=== PATIENT | male | born 1970 ===

== ENCOUNTER → 2020-09-07 | Outpatient (CLI) | payer OTHER | END | disposition home or self-care (01) | LOC: RAD 12:03 | PROVIDERS: ATTEND Internal Medicine Cardiovascular Disease | DX: M79.642 Pain in left hand (principal) ==

== ENCOUNTER 2021-05-04 05:00 | Day surgery (SDC) | payer OTHER ==
[~2021-05-04 05:00] MED LIST: ADULT LOW DOSE81 M1 PO; CLONAZEPAM1 MG PO; CRESTOR20 MG PO; FENOFIBR PO; HORIZANT600 MG PO; LEVOXYL150 MCG PO; TOPROL XL25 M1 PO; ZESTRIL2.5 MG PO
== END 2021-05-04 14:20 | disposition home or self-care (01) ==
LOC: CIR.AMB 05:00
PROVIDERS: ATTEND Specialist
DX: K42.9 Umbilical hernia without obstruction or gangrene (principal); Z20.822 Contact with and (suspected) exposure to COVID-19